=== PATIENT | male | born 1975 | race Caucasian/White ===

== ENCOUNTER 2020-07-21 08:45 | Emergency (ER) | payer OTHER ==
[~2020-07-21] VITALS: Ht 180.3 cm; Wt 133.8 kg
[2020-07-21] MEDS ORDERED: COLCHICINE 0.6 MG TABLET PO ONE (09:15)
[2020-07-21] MEDS ORDERED: COLCHICINE 0.6 MG TABLET ONE (09:16)
--- NOTE | 2020-07-21 09:18 | NUR ---
Gave pt RX and d/c instructions, pt verbalized understanding.
[2020-07-21 09:19] VITALS: BP 152/98
== END 2020-07-21 09:19 | disposition home or self-care (01) ==
LOC: ER 08:45
DX: M10.9 Gout, unspecified (principal); Z88.0 Allergy status to penicillin
CPT/HCPCS: A4663

== ENCOUNTER 2021-08-12 08:31 | Emergency (ER) | payer MEDICAID, OTHER ==
[~2021-08-12] VITALS: Ht 180.3 cm; Wt 127.0 kg
[2021-08-12] MEDS ORDERED: ACETAMINOPHEN 325 MG TABLET PO ONE (09:15)
--- NOTE | 2021-08-12 09:16 | NUR ---
Patient is resting comfortably on gurney while using his personal cellphone, NAD.
[2021-08-12] MEDS ORDERED: ACETAMINOPHEN ES 500 MG TABLET ONE (09:22)
[2021-08-12] MEDS ORDERED: ACETAMINOPHEN 325 MG TABLET ONE (09:23)
[2021-08-12 09:38] LABS: HEMATOCRIT 42.7 % (36.7-47.1); MEAN CORPUSCULAR HEMOGLOBIN 30.4 uug (23.8-33.4); MEAN CORPUSCULAR VOLUME 87.9 fL (73.0-96.2); PLATELET COUNT (AUTO) 263 K/uL (152-348)
[2021-08-12 09:45] LABS: CREATININE 0.9 mg/dL (0.6-1.3)
[2021-08-12 09:51] LABS: BILIRUBIN,TOTAL 0.4 mg/dL (0.2-1.0); TOTAL PROTEIN, SERUM 7.7 g/dL (6.4-8.2)
--- NOTE | 2021-08-12 10:01 | NUR ---
Patient discharged to home in stable condition with brisk steady gait. Written and verbal after care instructions given. Patient verbalized understanding and compliance of instructions. Stressed follow up with his [facility] doctors or return to ER for worsening s/s.
== END 2021-08-12 10:01 | disposition home or self-care (01) ==
LOC: ER 08:36
DX: R07.9 Chest pain, unspecified (principal); R94.31 Abnormal electrocardiogram [ECG] [EKG]; M25.522 Pain in left elbow; G47.33 Obstructive sleep apnea (adult) (pediatric); E66.9 Obesity, unspecified; Z68.39 Body mass index [BMI] 39.0-39.9, adult; Z88.0 Allergy status to penicillin
CPT/HCPCS: 36415; 70030-TC; 71045; 85025; 93005; A4663; A9150